=== PATIENT | female | born 1985 | race Two or more races ===

== ENCOUNTER 2016-08-15 01:25 | Emergency (ER) | payer MEDICAID ==
[2016-08-15] MEDS ORDERED: PREDNISONE 20 MG TABLET ONE (02:47)
== END 2016-08-15 03:24 | disposition home or self-care (01) ==
LOC: ED 01:25
DX: L23.3 Allergic contact dermatitis due to drugs in contact with skin (principal); T49.0X5A Adverse effect of local antifungal, anti-infective and anti-inflammatory drugs, initial encounter; Y92.009 Unspecified place in unspecified non-institutional (private) residence as the place of occurrence of the external cause
CPT/HCPCS: 99283 ×2; J7512